=== PATIENT | male | born 1950 ===

== ENCOUNTER 2021-06-20 13:00 | Emergency (ER) | payer MEDICAID, MEDICARE ==
[~2021-06-20] VITALS: Ht 177.8 cm; Wt 95.0 kg
[~2021-06-20 13:00] MED LIST: LIDOCAINE 2% TOPICAL JELLY 5GM TUBE. TP ONE
--- NOTE | 2021-06-20 13:36 | ED.ADGEN ---
Past Medical History Additional Past Medical Histor: Parkinson's disease Past Surgical History: Other Smoking Status: Never Smoker Alcohol Use: None General Adult EDM: Chief Complaint: URINE CATHETER PROBLEM HPI: HPI: Patient is a 70-year-old male who arrives via EMS with a reported problem with his catheter. Patient reports he has had an indwelling catheter for quite some time as he has Parkinson's disease and finds it very difficult to move unassisted. Patient reports however 3:00 this morning he was transferring from his bed to wheelchair and during some point there he believes he may have injured his penis as the patient has since had bright red blood in his catheter in addition to clots. Patient denies any particular pain at this time. He further denies medical concerns/conditions otherwise. He is awake, alert and nontoxic-appearing Review of Systems: Review of Systems: Constitutional: Denies fever or chills. [] Eyes: Denies change in visual acuity. [] HENT: Denies nasal congestion or sore throat. [] Respiratory: Denies cough or shortness of breath. [] Cardiovascular: Denies chest pain or edema. [] GI: Denies abdominal pain, nausea, vomiting, bloody stools or diarrhea. [] : Reports christine hematuria. Additionally reports Addison catheter malfunction. Denies dysuria. [] Musculoskeletal: Denies back pain or joint pain. [] Integument: Denies rash. [] Neurologic: Reports Parkinson's disease. Denies headache, focal weakness or sensory changes. [] Endocrine: Denies polyuria or polydipsia. [] Lymphatic: Denies swollen glands. [] Psychiatric: Denies depression or anxiety. [] Current Medications: Current Medications Medications (Trade) Dose Ordered Sig/Donna Start Time Stop Time Status Last Admin Dose Admin Acetaminophen/ Hydrocodone Bitart (Lortab 5/325) 1 tab 1X ONCE 06/20/21 13:45 06/20/21 13:46 DC 06/20/21 13:43 1 TAB Allergies: Allergies: Allergies Coded Allergies Type Severity Reaction Last Updated Verified No Known Drug Allergies 06/20/21 No Physical Exam: PE: Constitutional: Well developed, well nourished, no acute distress, non-toxic appearance. [] HENT: Normocephalic, atraumatic, bilateral external ears normal, oropharynx moist, no oral exudates, nose normal. [] Eyes: PERRLA, EOMI, conjunctiva normal, no discharge. [] Neck: Normal range of motion, no tenderness, supple, no stridor. [] Cardiovascular:Heart rate regular rhythm, no murmur [] Lungs & Thorax: Bilateral breath sounds clear to auscultation [] Abdomen: Bowel sounds normal, soft, no tenderness, no masses, no pulsatile masses. [] Genitourinary: Patient does have a Addison catheter in place. There is bright red blood in the tubing as well as the bag. Bedside ultrasonography was performed and revealed 11 mL of urine within the bladder. Skin: Warm, dry, no erythema, no rash. [] Back: No tenderness, no CVA tenderness. [] Extremities: No tenderness, no cyanosis, no clubbing, ROM intact, no edema. [] Neurologic: Alert and oriented X 3, normal motor function, normal sensory function, no focal deficits noted. [] Psychologic: Affect normal, judgement normal, mood normal. [] Current Patient Data: Labs: Laboratory Tests Test 06/20/21 13:32 Urine Collection Type Unknown Urine Color Red Urine Clarity Bloody Urine pH (<5.0-8.0) Urine Specific [place] (1.000-1.030) Urine Protein mg/dL (NEG-TRACE) Urine Glucose (UA) mg/dL (NEG) Urine Ketones (Stick) mg/dL (NEG) Urine Blood (NEG) Urine Nitrite (NEG) Urine Bilirubin (NEG) Urine Urobilinogen Dipstick mg/dL (0.2 mg/dL) Urine Leukocyte Esterase (NEG) Urine RBC Tntc /HPF (0-2) Urine WBC 11-20 /HPF (0-4) Urine Bacteria 0 /HPF (0-FEW) Vital Signs: Vital Signs Date Time Temp Pulse Resp B/P (MAP) Pulse Ox O2 Delivery O2 Flow Rate FiO2 06/20/21 15:33 84 16 109/65 (80) 98 Room Air 06/20/21 13:18 98.5 2.0 98.5 EKG: EKG: [] Heart Score: C/O Chest Pain: No Risk Factors: Risk Factors: DM, Current or recent (<one month) smoker, HTN, HLP, family history of CAD, obesity. Risk Scores: Score 0 - 3: 2.5% MACE over next 6 weeks - Discharge Home Score 4 - 6: 20.3% MACE over next 6 weeks - Admit for Clinical Observation Score 7 - 10: 72.7% MACE over next 6 weeks - Early Invasive Strategies Radiology/Procedures: Radiology/Procedures: [] Course & Med Decision Making: Course & Med Decision Making Pertinent Labs and Imaging studies reviewed. (See chart for details) The patient remains awake, alert and nontoxic-appearing. Patient did have a Addison catheter exchange and he now reports feeling much better now. The patient has had his catheter irrigated copiously with normal saline and states he is without discomfort of any kind. I do believe the patient suffered from a penile contusion which has since complicated his ability to use his Addison catheter. Patient states that this catheter is working much more effectively and does appear to be draining as there has been 900 cc of normal saline returned from irrigation and the patient continues to void without difficulty I have encouraged the patient to see his urologist or urology on-call ([facility]) in follow-up with respect to this problem. Patient also has several white cells in his urine which is likely catheter associated. I have elected to place him on antibiotics as a precaution and advised that he take this issue up with his urologist/urology on-call. The patient understands and has agreed to do so. He is otherwise been instructed to return with any new fevers, pelvic pain or changes to his voiding habits. He is nontoxic-appearing and stable for discharge Dragon Disclaimer: Shane Disclaimer: This electronic medical record was generated, in whole or in part, using a voice recognition dictation system. Departure Departure Impression: Primary Impression: Obstructed Addison catheter Additional Impressions: Urinary catheter (Addison) change required UTI (urinary tract infection) due to urinary indwelling Addison catheter Disposition: HOME / SELF CARE / HOMELESS Condition: IMPROVED Referrals: ÁLVARO GARCÍA (PCP) Patient Instructions: Catheter-Associated Urinary Tract Infection FAQs - OLIVAREZ, Addison Catheter Care, Adult Additional Instructions: Follow-up with your urologist/urology on-call tomorrow. Please return to the emergency department with any further problems with your catheter or medical concerns otherwise. [facility], , Dr. Rowland Scripts Nitrofurantoin Monohyd/M-Cryst (MACROBID [id number] MG CAPSULE) 100 Mg Capsule 1 CAP PO BID for 7 Days, #14 CAP 0 Refills Prov: BIPIN PETER DO 06/20/21 Problem Qualifiers BIPIN PETER DO Jun 20, 2021 13:35
[2021-06-20 13:45] LABS: CLARITY,URINE BLOODY; COLOR,URINE RED
[2021-06-20] MEDS ORDERED: HYDROcodone/APAP 5/325MG 1 TAB TABLET PO ONE (13:45)
[2021-06-20 13:46] LABS: RBC,URINE TNTC /HPF (0-2)
[2021-06-20 13:52] LABS: BACTERIA,URINE 0 /HPF (0-FEW)
[2021-06-20] MEDS ORDERED: NITR100C62 PO (15:42)
[2021-06-20 19:00] VITALS: BP 116/62
== END 2021-06-20 19:20 | disposition home or self-care (01) ==
LOC: ER 13:00
DX: T83.511A Infection and inflammatory reaction due to indwelling urethral catheter, initial encounter (principal); T83.098A Other mechanical complication of other urinary catheter, initial encounter; G20 Parkinson's disease
CPT/HCPCS: 81001; 87086; 99284